=== PATIENT | male | born 1995 | race Caucasian/White ===

== ENCOUNTER 2018-03-08 23:00 | Emergency (ER) | payer BC, MEDICAID ==
[2018-03-08] MEDS ORDERED: Pantoprazole 80 MG in Sodium Chloride 0.9% 100 ML IV ONE (23:18)
[2018-03-08] MEDS ORDERED: Sodium Chloride 0.9% 1,000 ML IV ONE (23:18)
[2018-03-08] MEDS ORDERED: Ondansetron 4 MG/2 ML SDV IVPUSH ONE (23:20)
[2018-03-09] MEDS ORDERED: Pantoprazole 40 MG Vial ONE (00:25)
[2018-03-09 02:20] VITALS: BP 131/72
--- NOTE | 2018-03-12 08:17 | ER ---
DATE SEEN: 03/08/2018 HISTORY OF PRESENT ILLNESS: [facility] 22[facility]year-[facility]30 [facility] this [facility]. An hour and a half later, he experienced diarrhea and vomited 4 times. He has burning in his mid epigastrium and his chest. Otherwise, the patient is healthy. He has had right knee injury to meniscus, has not had surgery, and left arm fibroma. He smokes a pack a day. He has migraines and toothache in the past. He is attended by girlfriend with him this evening. ALLERGIES: Hives with sulfa. MEDICATIONS: None. No asthma. No diabetes, heart disease, high blood pressure, serious illnesses, heart illnesses or surgery. REVIEW OF SYSTEMS: Negative except for his right knee pain intermittently and his onset of abdominal discomfort with vomiting and diarrhea this evening an hour after he had eaten at [employer]. PHYSICAL EXAMINATION: VITAL SIGNS: Pending. GENERAL: Pleasant, long-haired young fellow who, in spite of his discomfort, has a smile on his face and has great support from his girlfriend. HEENT: PERRLA intact. Pharynx without abnormality. NECK: No thyromegaly or masses. No cervical adenopathy. No tracheal tug. LUNGS: Clear without rales, rhonchi, or wheezes. HEART: S1 and S2. No murmur. No irregular rate and rhythm. No tachycardia. ABDOMEN: Soft, mild midepigastric abdominal discomfort. No guarding. No rebound. No masses or megaly. Bowel sounds normal. MUSCULOSKELETAL: No spinous process tenderness. Cervical, thoracic, lumbar spine, no paraspinal muscle discomfort. No CVA percussion tenderness. GENITALIA: Negative. LOWER EXTREMITIES: Without abnormality. NEUROLOGIC: Not performed. ASSESSMENT: Staphylococcal or E. coli enterotoxin resulting in nausea and vomiting and mild dehydration. EMERGENCY ROOM COURSE: He was treated with 1000 mL normal saline, 80 mg Protonix, and 4 mg Zofran IV. He felt much better after this. He was dismissed home. He can buy and use [id number] Maalox or Mylanta b.i.d. If he chooses, he can fill a prescription for Pepcid. He felt comfortable with the latter suggestion. Follow up with in one week, if not improved, or earlier, if worse. DIAGNOSES: 1. Vomiting secondary to enterococcal/staphylococcal toxins from food poisoning after having eaten at [employer]. 2. History of toothaches. 3. Right knee partial knee derangement - needs MRI to evaluate this. The patient was seen at 2310 hours. /[id number] IDALIA/ELDA
== END 2018-03-09 01:15 | disposition home or self-care (01) ==
LOC: FB.ED 23:00
DX: T62.8X1A Toxic effect of other specified noxious substances eaten as food, accidental (unintentional), initial encounter (principal); M23.91 Unspecified internal derangement of right knee; E86.0 Dehydration; I10 Essential (primary) hypertension; Z88.2 Allergy status to sulfonamides
CPT/HCPCS: 96361; 96365; 96375; 99283; C9113; J2405; J7030

== ENCOUNTER 2019-09-28 19:28 | Emergency (ER) | payer BC, MEDICAID ==
[2019-09-28] MEDS ORDERED: diphenhydrAMINE 50 MG/ML SDV IVPUSH ONE (19:54)
[2019-09-28] MEDS ORDERED: Sodium Chloride 0.9% 10 ML Syringe FLUSH PRN (19:54)
[2019-09-28] MEDS ORDERED: Metoclopramide 10 MG/2 ML SDV IVPUSH ONE (19:55)
[2019-09-28] MEDS ORDERED: Ketorolac 30 MG/ML SDV IVPUSH ONE (19:57)
--- NOTE | 2019-09-28 20:01 | EDM.PDOC ---
ED HPI GENERAL MEDICAL PROBLEM - General Chief Complaint: Headache Stated Complaint: MIGRAINE;NUMB Time Seen by Provider: 09/28/19 19:50 Source of Information: Reports: Patient, Old Records History Limitations: Reports: No Limitations - History of Present Illness INITIAL COMMENTS - FREE TEXT/NARRATIVE: Kennedy comes into [facility] ED with a generalized migraine headache that began at 5 am today. There is photophobia, nausea, malaise, fatigue, and absence of relief with Tramadol and NSAIDs. His supply of Imitrex is depleted. - Related Data Allergies Allergy/AdvReac Type Severity Reaction Status Date / Time Sulfa (Sulfonamide Allergy Throat Verified 03/09/18 02:41 Antibiotics) Swells Home Meds: Home Meds Ketorolac [Toradol] 10 mg PO Q6H PRN #16 tab 06/07/16 [Rx] Past Medical History HEENT History: Reports: Other (See Below) Other HEENT History: Dental caries. 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 Being tested for fibromyalgia. Neurological History: Reports: Migraines Psychiatric History: Reports: Anxiety - Infectious Disease History Infectious Disease History: Reports: MRSA Social & Family History - Family History Family Medical History: Noncontributory - Living Situation & Occupation Living situation: Reports: Single, with Family ED ROS GENERAL - Review of Systems Review Of Systems: Comprehensive ROS is negative, except as noted in HPI. - Physical Exam Exam: See Below Exam Limited By: No Limitations General Appearance: Alert, WD/WN, Moderate Distress Eye Exam: Bilateral Eye: EOMI, Normal Inspection, PERRL Ears: Normal External Exam, Normal TMs Nose: Normal Inspection Throat/Mouth: Normal Inspection, Normal Teeth, Normal Oropharynx, Normal Voice Head Exam: Normocephalic Neck: Normal Inspection, Supple, Non-Tender Respiratory/Chest: Lungs Clear Cardiovascular: Regular Rate, Rhythm, No Murmur GI/Abdominal: Normal Bowel Sounds, Soft, Non-Tender, No Organomegaly, No Distention (Male) Exam: Deferred Rectal (Males) Exam: Deferred Neuro Exam (Abbreviated): Alert, Oriented, CN II-XII Intact, Normal Cognition, Normal Gait, No Motor/Sensory Deficits Back Exam: Normal Inspection Extremities: Normal Inspection Psychiatric: Normal Affect, Normal Mood Skin Exam: Warm, Dry, Intact, Normal Color, No Rash Course - Vital Signs Text/Narrative:: Following assessment, I administered Benadryl 50 mg IV, Reglan 10 mg IV and Toradol 30 mg IV with amelioration of headache sxs within 30 minutes. - Orders/Labs/Meds Orders: Active Orders 24 hr Category Date Time Status Sodium Chloride 0.9% [Saline Flush] Med 09/28/19 19:54 Active 10 ml FLUSH ASDIRECTED PRN Peripheral IV Insertion Adult [OM.PC] Routine Oth 09/28/19 19:54 Ordered Medication Orders Sodium Chloride (Saline Flush) 10 ml FLUSH ASDIRECTED PRN PRN Reason: Keep Vein Open Last Admin: 09/28/19 20:14 Dose: 10 ml Meds: Medications Generic Name Dose Route Start Last Admin Trade Name Freq PRN Reason Stop Dose Admin Sodium Chloride 10 ml 09/28/19 19:54 09/28/19 20:14 Saline Flush FLUSH 10 ml ASDIRECTED PRN Administration Keep Vein Open Discontinued Medications Generic Name Dose Route Start Last Admin Trade Name Freq PRN Reason Stop Dose Admin Diphenhydramine HCl 50 mg 09/28/19 19:54 09/28/19 20:14 Benadryl IVPUSH 09/28/19 19:55 50 mg ONETIME ONE Administration Ketorolac Tromethamine 30 mg 09/28/19 19:57 09/28/19 20:14 Toradol IVPUSH 09/28/19 19:58 30 mg ONETIME ONE Administration Metoclopramide HCl 10 mg 09/28/19 19:55 09/28/19 20:14 Reglan IVPUSH 09/28/19 19:56 10 mg ONETIME ONE Administration Departure - Departure Time of Disposition: 20:45 Disposition: Home, Self-Care 01 Condition: Good Clinical Impression: Migraine - Discharge Information *PRESCRIPTION DRUG MONITORING PROGRAM REVIEWED*: Not Applicable *COPY OF PRESCRIPTION DRUG MONITORING REPORT IN PATIENT GILBERT: Not Applicable Instructions: Migraine Headache, [id number] Referrals: Meir Eric MD [Primary Care Provider] - Forms: ED Department Discharge Additional Instructions: follow up with your primary care for your regular migraine medication drink enough fluid rest Sepsis Event Note - Focused Exam Date Exam was Performed: 09/28/19 Time Exam was Performed: 20:54 - Problem List & Annotations (1) Migraine SNOMED Code(s): 67413943 Code(s): G43.909 - MIGRAINE, UNSP, NOT INTRACTABLE, WITHOUT STATUS MIGRAINOSUS Status: Acute Current Visit: Yes Annotation/Comment:: I suggested rest, hydration and NSAIDs if needed. He needs to follow up with PCP for migraine prevention. - Problem List Review Problem List Initiated/Reviewed/Updated: Yes - My Orders Last 24 Hours: My Active Orders 09/28/19 19:54 Sodium Chloride 0.9% [Saline Flush] 10 ml FLUSH ASDIRECTED PRN Peripheral IV Insertion Adult [OM.PC] Routine - Assessment/Plan Last 24 Hours: My Active Orders 09/28/19 19:54 Sodium Chloride 0.9% [Saline Flush] 10 ml FLUSH ASDIRECTED PRN Peripheral IV Insertion Adult [OM.PC] Routine Plan: Follow up with PCP.
[2019-09-29 03:31] VITALS: BP 106/57; PULSE 87
== END 2019-09-28 20:54 | disposition home or self-care (01) ==
LOC: FB.ED 19:28
DX: G43.909 Migraine, unspecified, not intractable, without status migrainosus (principal); M19.90 Unspecified osteoarthritis, unspecified site; Z88.2 Allergy status to sulfonamides
CPT/HCPCS: 96374; 96375; 99283-25; J1200; J1885; J2765